=== PATIENT | male | born 1980 | race Caucasian/White ===

== ENCOUNTER 2019-09-30 03:10 | Emergency (ER) | payer MEDICAID ==
[~2019-09-30] VITALS: Ht 182.9 cm; Wt 88.6 kg
[2019-09-30 04:39] LABS: AMPHET/METH SCREEN,URINE POSITIVE (NEGATIVE); BARBITURATE SCREEN, URINE NEGATIVE (NEGATIVE); BENZODIAZEPINES SCREEN,URINE NEGATIVE (NEGATIVE); CANNABINOID SCREEN,URINE NEGATIVE (NEGATIVE); COCAINE SCREEN,URINE NEGATIVE (NEGATIVE); METHADONE SCREEN, URINE NEGATIVE (NEGATIVE); OPIATE SCREEN,URINE NEGATIVE (NEGATIVE)
[2019-09-30 04:41] LABS: PHENCYCLIDINE SCREEN,URINE NEGATIVE (NEGATIVE)
[2019-09-30 05:37] VITALS: BP 119/67
== END 2019-09-30 05:52 | disposition home or self-care (01) ==
LOC: EMS 03:10
DX: T43.621A Poisoning by amphetamines, accidental (unintentional), initial encounter (principal); Y92.89 Other specified places as the place of occurrence of the external cause